=== PATIENT | female | born 1990 | race Caucasian/White ===

== ENCOUNTER 2018-04-23 12:58 | Outpatient (CLI) | payer OTHER ==
--- NOTE | 2018-04-23 16:05 | Ultrasound Report ---
Reason: RT BREAST LUMP Procedure Date: 04/23/2018 Accession Number: [id number] / [id number] Procedure: US - Breast Unilateral Limited CPT Code: FULL RESULT: EXAM: TARGETED BREAST ULTRASOUND. EXAM DATE: 04/23/2018 03:00 PM. CLINICAL HISTORY: Palpable breast lump with some pain which is now resolving. COMPARISON: None. TECHNIQUE: Arvizu scale and limited color Doppler images of the area of interest of the right breast were obtained. FINDINGS: Subareolar ducts at the 12 o'clock position are ectatic compared to other nearby regions. No masses or soft tissue changes or change in vascularity detected by color Doppler. IMPRESSION: Ductal ectasia. BI-RADS 2, benign finding. RADIA
== END 2018-04-23 12:59 | disposition home or self-care (01) ==
LOC: DI 12:58
PROVIDERS: ATTEND Nurse Practitioner Family
DX: N60.41 Mammary duct ectasia of right breast (principal)
CPT/HCPCS: 76642